=== PATIENT | female | born 1950 | race Two or more races ===

== ENCOUNTER 2023-04-14 12:23 | Emergency (ER) | payer OTHER ==
[~2023-04-14] VITALS: Ht 162.6 cm; Wt 72.6 kg
[2023-04-14] MEDS ORDERED: G-ZYNCOF 20-40473 ML (13:02)
[2023-04-14] MEDS ORDERED: AZITHROMYCIN500 MG PO (13:03)
== END 2023-04-14 19:03 | disposition home or self-care (01) ==
LOC: ER 12:23
DX: R05.9 Cough, unspecified (principal); Z91.013 Allergy to seafood